=== PATIENT | female | born 1985 | race African-American/Black ===

== ENCOUNTER 2017-11-11 20:29 | Emergency (ER) | payer MEDICAID, OTHER ==
[2017-11-11 21:57] LABS: URINE BLOOD (Dip) POC Negative (NEGATIVE); URINE GLUCOSE (Dip) POC Negative (NEGATIVE); URINE KETONES (Dip) POC Negative (NEGATIVE); URINE LEUKOCYTE EST (Dip) POC Negative (NEGATIVE); URINE NITRITE (Dip) POC Negative (NEGATIVE); URINE TOTAL PROTEIN POC 1+ (NEGATIVE)
[2017-11-11 21:57] LABS: URINE PH (Dip) POC 8.5 (5.0-8.5)
== END 2017-11-11 22:21 | disposition home or self-care (01) ==
LOC: FTE 20:29
DX: N75.0 Cyst of Bartholin's gland (principal)
CPT/HCPCS: 81003; 81025; 99284

== ENCOUNTER 2017-12-03 17:14 | Emergency (ER) | payer BC, MEDICAID ==
[2017-12-03] MEDS ORDERED: LIDOCAINE 1% (MDV) 20 ML INJ SC (18:30)
[2017-12-03] MEDS: LIDOCAINE 1% (MDV) 50 ML INJ SC (18:48)
== END 2017-12-03 20:01 | disposition home or self-care (01) ==
LOC: FTE 17:14
DX: L60.0 Ingrowing nail (principal)
CPT/HCPCS: 11765; 99283-25